=== PATIENT | female | born 1950 | race Caucasian/White ===

== ENCOUNTER 2019-11-22 21:15 | Inpatient (IN) | payer MEDICARE, BC ==
[~2019-11-22] VITALS: Ht 149.9 cm; Wt 71.2 kg
[2019-11-22 21:30] VITALS: BP 127/57
[2019-11-22] MEDS ORDERED: OxyCODONE HCL/ACETAMINOPHEN 5-325 MG TABLET PO PRN (22:45)
[2019-11-22] MEDS ORDERED: MORPHINE SULFATE 2 MG/ML SYRINGE IVP PRN (22:45)
[2019-11-22] MEDS ORDERED: ONDANSETRON HCL 4 MG/2 ML VIAL IVP PRN (23:00)
[2019-11-22] MEDS: INSULIN GLARGINE,HUM.REC.ANLOG 100 UNITS/ML SQ SCH (23:42)
[2019-11-23] MEDS ORDERED: MAGNESIUM HYDROXIDE SUSPENSION 30 ML UDCUP PO PRN
[2019-11-23] MEDS ORDERED: ALBUTEROL SULFATE 2.5 MG/0.5 ML NEB SOLUTION NEB PRN
[2019-11-23] MEDS ORDERED: DEXTROSE 50%-WATER 25 GM/50 ML SYRINGE IVP PRN
[2019-11-23] MEDS ORDERED: ONDANSETRON HCL 4 MG/2 ML VIAL IVP PRN
[2019-11-23] MEDS ORDERED: IPRATROPIUM BROMIDE 0.5 MG/2.5 ML NEB SOLUTION NEB PRN
[2019-11-23] MEDS ORDERED: ZOLPIDEM TARTRATE 5 MG TABLET PO PRN
[2019-11-23] MEDS ORDERED: BISACODYL 10 MG RECTAL RECTAL SUPPOSITORY PR PRN
[2019-11-23] MEDS ORDERED: ACETAMINOPHEN 325 MG TABLET PO PRN ×2 (00:30→01:15)
[2019-11-23] MEDS ORDERED: MELATONIN 5 MG TABLET PO PRN ×2 (00:30→01:15)
[2019-11-23] MEDS ORDERED: METOCLOPRAMIDE HCL 5 MG TABLET PO PRN ×2 (00:30→01:15)
[2019-11-23] MEDS ORDERED: SENNA 187 MG TABLET PO PRN (01:15)
[2019-11-23 04:30] VITALS: BP 121/58
[2019-11-23] MEDS: INSULIN LISPRO 100 UNITS/ML SQ PRN ×3 (05:57→17:27)
[2019-11-23 06:15] LABS: BASOPHILS % (AUTO) 0.6 % (0.0-2.0); EOSINOPHILS % (AUTO) 1.1 % (1.0-6.0); HEMATOCRIT 30.3 % (36-46); HEMOGLOBIN 10.2 g/dL (12.0-16.0); LYMPHOCYTES # (AUTO) 3.3 K/uL (1.0-4.8); LYMPHOCYTES % (AUTO) 25.2 % (22.0-44.0); MEAN CORPUSCULAR HEMOGLOBIN 27.9 pg (26.0-34.0); MEAN CORPUSCULAR HGB CONC 33.7 G/dL (31.0-37.0); MEAN CORPUSCULAR VOLUME 83 fL (80-100); MONOCYTES # (AUTO) 0.8 K/uL (0.1-1.0); MONOCYTES % (AUTO) 6.5 % (2.0-9.0); NEUTROPHILS # (AUTO) 8.8 K/uL (1.8-7.7); NEUTROPHILS % (AUTO) 66.6 % (40.0-70.0); PLATELET COUNT (AUTO) 497 K/uL (150-450); RED BLOOD CELL COUNT(AUTO) 3.66 MIL/uL (4.00-5.20)
[2019-11-23 06:47] LABS: HEMOGLOBIN A1C 9.5 % (4.5-6.2)
[2019-11-23 06:52] LABS: ANION GAP 5 mmol/L (8-16); CALCIUM, TOTAL 8.6 mg/dL (8.8-10.5); CARBON DIOXIDE 29 mmol/L (22-29); CHLORIDE 100 mmol/L (98-107); CHOL/HDL RATIO 6.8 (3.9-5.7); CHOLESTEROL 156 mg/dL (131-200); CREATINE KINASE, TOTAL ONLY 8 U/L (26-192); CREATININE 0.55 mg/dL (0.60-1.30); FREE T4 (FREE THYROXINE) 1.16 ng/dL (0.76-1.46); GLOMERULAR FILTR. RATE CALC > 60 mL/min (>60); GLUCOSE,RANDOM 160 mg/dL (70-110); HDL CHOLESTEROL 23 mg/dL (40-60); LDL CHOL (CALC.) 98 mg/dL (0-130); POTASSIUM 4.1 mmol/L (3.5-5.1); SODIUM SERUM 134 mmol/L (136-145); THYROID STIMULATING HORMONE 1.65 uIU/mL (0.36-3.74); TRIGLYCERIDES 176 mg/dL (15-150); UREA NITROGEN, BLOOD 10 mg/dL (7-18)
[2019-11-23 07:01] LABS: GLUCOMETER DEV NAME(LOC) 4E.2; GLUCOSE,POINT OF CARE 228 MG/DL (70-110)
[2019-11-23 07:49] VITALS: BP 109/61
[2019-11-23] MEDS: CefoTEtan DISOD 2 GM/DEXTROSE 50 ML IV SCH ×2 (08:55→17:26)
[2019-11-23] MEDS: PANTOPRAZOLE SODIUM 40 MG DR TABLET PO SCH (08:56)
[2019-11-23] MEDS: CARVEDILOL 25 MG TABLET PO SCH ×2 (08:56→21:11)
[2019-11-23] MEDS: FUROSEMIDE 20 MG TABLET PO SCH (08:56)
[2019-11-23] MEDS: FAMOTIDINE 20 MG TABLET PO SCH ×2 (08:56→21:11)
[2019-11-23] MEDS: POTASSIUM CHLORIDE 20 MEQ ER TABLET PO SCH (08:56)
[2019-11-23] MEDS: ZINC SULFATE 220 MG CAPSULE PO SCH (08:56)
[2019-11-23] MEDS: ASCORBIC ACID 500 MG TABLET PO SCH ×2 (08:56→21:11)
[2019-11-23] MEDS: MULTIVITAMINS WITH MINERALS, THERAPEUTIC TABLET PO SCH (08:56)
[2019-11-23] MEDS: LACTOBAC ACID/BULG/BIFID/THERM TABLET PO SCH ×2 (08:57→21:11)
[2019-11-23] MEDS ORDERED: ASCORBIC ACID 500 MG TABLET PO SCH (09:00)
[2019-11-23] MEDS ORDERED: DOCUSATE SODIUM 100 MG CAPSULE PO SCH (09:00)
[2019-11-23] MEDS ORDERED: LACTOBAC ACID/BULG/BIFID/THERM TABLET PO SCH (09:00)
[2019-11-23] MEDS ORDERED: ZINC SULFATE 220 MG CAPSULE PO SCH (09:00)
[2019-11-23] MEDS ORDERED: SENNA 187 MG TABLET PO SCH (09:00)
[2019-11-23] MEDS ORDERED: POTASSIUM CHLORIDE 20 MEQ ER TABLET PO SCH (09:00)
[2019-11-23] MEDS ORDERED: IPRATROPIUM BROMIDE 0.5 MG/2.5 ML NEB SOLUTION NEB SCH (09:00)
[2019-11-23] MEDS ORDERED: MULTIVITAMINS WITH MINERALS, THERAPEUTIC TABLET PO SCH (09:00)
[2019-11-23] MEDS: IPRATROPIUM BROMIDE 0.5 MG/2.5 ML NEB SOLUTION NEB SCH ×2 (09:00→22:26)
[2019-11-23] MEDS: ALBUTEROL SULFATE 2.5 MG/0.5 ML NEB SOLUTION NEB SCH ×2 (09:00→22:26)
[2019-11-23] MEDS ORDERED: ALBUTEROL SULFATE 2.5 MG/0.5 ML NEB SOLUTION NEB SCH (09:00)
[2019-11-23 11:53] VITALS: BP 124/53
[2019-11-23 12:05] LABS: GLUCOMETER DEV NAME(LOC) 4E.2; GLUCOSE,POINT OF CARE 132 MG/DL (70-110)
[2019-11-23 16:00] VITALS: BP 128/57
[2019-11-23 17:35] LABS: GLUCOMETER DEV NAME(LOC) 4E.2; GLUCOSE,POINT OF CARE 169 MG/DL (70-110)
[2019-11-23 19:43] VITALS: BP 125/69
[2019-11-23] MEDS ORDERED: LISINOPRIL 20 MG TABLET PO SCH (21:00)
[2019-11-23] MEDS ORDERED: LISINOPRIL 10 MG TABLET PO SCH (21:00)
[2019-11-23] MEDS: LISINOPRIL 10 MG TABLET PO SCH (21:12)
[2019-11-23] MEDS: INSULIN GLARGINE,HUM.REC.ANLOG 100 UNITS/ML SQ SCH (22:27)
[2019-11-23 23:45] VITALS: BP 106/54
[2019-11-24 04:14] VITALS: BP 124/59
[2019-11-24] MEDS: CefoTEtan DISOD 2 GM/DEXTROSE 50 ML IV SCH ×2 (06:14→17:17)
[2019-11-24 07:57] LABS: BASOPHILS % (AUTO) 0.5 % (0.0-2.0); EOSINOPHILS % (AUTO) 0.6 % (1.0-6.0); HEMOGLOBIN 10.2 g/dL (12.0-16.0); LYMPHOCYTES # (AUTO) 3.4 K/uL (1.0-4.8); LYMPHOCYTES % (AUTO) 24.6 % (22.0-44.0); MEAN CORPUSCULAR HGB CONC 34.1 G/dL (31.0-37.0); MEAN CORPUSCULAR VOLUME 82 fL (80-100); MONOCYTES # (AUTO) 0.9 K/uL (0.1-1.0); MONOCYTES % (AUTO) 6.1 % (2.0-9.0); NEUTROPHILS # (AUTO) 9.5 K/uL (1.8-7.7); NEUTROPHILS % (AUTO) 68.2 % (40.0-70.0); PLATELET COUNT (AUTO) 464 K/uL (150-450); RED BLOOD CELL COUNT(AUTO) 3.65 MIL/uL (4.00-5.20); RED CELL DISTRIBUTION WIDTH 14.9 % (11.5-14.5)
[2019-11-24] MEDS: IPRATROPIUM BROMIDE 0.5 MG/2.5 ML NEB SOLUTION NEB SCH ×2 (08:15→20:53)
[2019-11-24] MEDS: ALBUTEROL SULFATE 2.5 MG/0.5 ML NEB SOLUTION NEB SCH ×2 (08:15→20:53)
[2019-11-24 08:25] LABS: ANION GAP 7 mmol/L (8-16); CALCIUM, TOTAL 8.4 mg/dL (8.8-10.5); CARBON DIOXIDE 29 mmol/L (22-29); CHLORIDE 102 mmol/L (98-107); CREATININE 0.74 mg/dL (0.60-1.30); GLOMERULAR FILTR. RATE CALC > 60 mL/min (>60); GLUCOSE,RANDOM 159 mg/dL (70-110); POTASSIUM 3.8 mmol/L (3.5-5.1); SODIUM SERUM 138 mmol/L (136-145); UREA NITROGEN, BLOOD 7 mg/dL (7-18)
[2019-11-24] MEDS: ASCORBIC ACID 500 MG TABLET PO SCH ×2 (08:30→20:41)
[2019-11-24] MEDS: POTASSIUM CHLORIDE 20 MEQ ER TABLET PO SCH (08:30)
[2019-11-24] MEDS: MULTIVITAMINS WITH MINERALS, THERAPEUTIC TABLET PO SCH (08:30)
[2019-11-24] MEDS: FUROSEMIDE 20 MG TABLET PO SCH (08:30)
[2019-11-24] MEDS: FAMOTIDINE 20 MG TABLET PO SCH ×2 (08:30→20:40)
[2019-11-24] MEDS: CARVEDILOL 25 MG TABLET PO SCH ×2 (08:30→20:40)
[2019-11-24] MEDS: PANTOPRAZOLE SODIUM 40 MG DR TABLET PO SCH (08:31)
[2019-11-24] MEDS: HEPARIN SODIUM,PORCINE 5,000 UNITS/ML VIAL SQ SCH ×2 (08:31→20:41)
[2019-11-24] MEDS: ZINC SULFATE 220 MG CAPSULE PO SCH (08:33)
[2019-11-24] MEDS: LACTOBAC ACID/BULG/BIFID/THERM TABLET PO SCH ×2 (08:33→20:40)
[2019-11-24 08:44] VITALS: BP 126/60
[2019-11-24 08:57] LABS: GLUCOMETER DEV NAME(LOC) 4E.2; GLUCOSE,POINT OF CARE 127 MG/DL (70-110)
[2019-11-24 11:42] VITALS: BP 118/63
[2019-11-24] MEDS: INSULIN LISPRO 100 UNITS/ML SQ PRN ×3 (11:49→21:32)
[2019-11-24 13:25] LABS: GLUCOMETER DEV NAME(LOC) 6N.1; GLUCOSE,POINT OF CARE 168 MG/DL (70-110)
[2019-11-24 15:33] VITALS: BP 136/67
[2019-11-24] MEDS ORDERED: SODIUM CHLORIDE 0.9% 250 ML IV ONE (17:20)
[2019-11-24 17:51] LABS: GLUCOMETER DEV NAME(LOC) 4E.2; GLUCOSE,POINT OF CARE 107 MG/DL (70-110)
[2019-11-24 20:38] VITALS: BP 155/79
[2019-11-24] MEDS: LISINOPRIL 10 MG TABLET PO SCH (20:40)
[2019-11-24] MEDS: INSULIN GLARGINE,HUM.REC.ANLOG 100 UNITS/ML SQ SCH (21:56)
[2019-11-24 23:45] VITALS: BP 131/62
[2019-11-25 02:39] LABS: GLUCOMETER DEV NAME(LOC) 6N.1; GLUCOSE,POINT OF CARE 159 MG/DL (70-110)
[2019-11-25 04:34] VITALS: BP 147/76
[2019-11-25] MEDS ORDERED: SODIUM CHLORIDE 0.9% 500 ML IV ONE (04:58)
[2019-11-25] MEDS: CefoTEtan DISOD 2 GM/DEXTROSE 50 ML IV SCH (05:06)
[2019-11-25] MEDS: INSULIN LISPRO 100 UNITS/ML SQ PRN ×4 (06:06→20:55)
[2019-11-25 07:30] LABS: BASOPHILS % (AUTO) 0.7 % (0.0-2.0); EOSINOPHILS % (AUTO) 0.5 % (1.0-6.0); HEMATOCRIT 30.9 % (36-46); HEMOGLOBIN 10.4 g/dL (12.0-16.0); LYMPHOCYTES # (AUTO) 3.3 K/uL (1.0-4.8); LYMPHOCYTES % (AUTO) 25.2 % (22.0-44.0); MEAN CORPUSCULAR HEMOGLOBIN 27.3 pg (26.0-34.0); MEAN CORPUSCULAR HGB CONC 33.5 G/dL (31.0-37.0); MEAN CORPUSCULAR VOLUME 82 fL (80-100); MONOCYTES # (AUTO) 0.7 K/uL (0.1-1.0); MONOCYTES % (AUTO) 5.8 % (2.0-9.0); NEUTROPHILS # (AUTO) 8.8 K/uL (1.8-7.7); NEUTROPHILS % (AUTO) 67.8 % (40.0-70.0); PLATELET COUNT (AUTO) 500 K/uL (150-450); RED CELL DISTRIBUTION WIDTH 15.5 % (11.5-14.5)
[2019-11-25 07:41] LABS: ANION GAP 5 mmol/L (8-16); CALCIUM, TOTAL 8.8 mg/dL (8.8-10.5); CARBON DIOXIDE 31 mmol/L (22-29); CHLORIDE 102 mmol/L (98-107); CREATININE 0.73 mg/dL (0.60-1.30); GLOMERULAR FILTR. RATE CALC > 60 mL/min (>60); GLUCOSE,RANDOM 137 mg/dL (70-110); POTASSIUM 4.3 mmol/L (3.5-5.1); SODIUM SERUM 138 mmol/L (136-145); UREA NITROGEN, BLOOD 6 mg/dL (7-18)
[2019-11-25 08:38] VITALS: BP 128/68
[2019-11-25] MEDS: ASCORBIC ACID 500 MG TABLET PO SCH ×2 (09:08→20:40)
[2019-11-25] MEDS: PANTOPRAZOLE SODIUM 40 MG DR TABLET PO SCH (09:08)
[2019-11-25] MEDS: POTASSIUM CHLORIDE 20 MEQ ER TABLET PO SCH (09:08)
[2019-11-25] MEDS: MULTIVITAMINS WITH MINERALS, THERAPEUTIC TABLET PO SCH (09:08)
[2019-11-25] MEDS: HEPARIN SODIUM,PORCINE 5,000 UNITS/ML VIAL SQ SCH ×2 (09:09→20:40)
[2019-11-25] MEDS: FUROSEMIDE 20 MG TABLET PO SCH (09:09)
[2019-11-25] MEDS: CARVEDILOL 25 MG TABLET PO SCH ×2 (09:09→20:40)
[2019-11-25] MEDS: ZINC SULFATE 220 MG CAPSULE PO SCH (09:09)
[2019-11-25] MEDS: FAMOTIDINE 20 MG TABLET PO SCH ×2 (09:09→20:40)
[2019-11-25] MEDS: LACTOBAC ACID/BULG/BIFID/THERM TABLET PO SCH ×2 (09:09→20:40)
[2019-11-25 12:01] VITALS: BP 134/74
[2019-11-25] MEDS: ALBUTEROL SULFATE 2.5 MG/0.5 ML NEB SOLUTION NEB SCH ×2 (12:47→20:50)
[2019-11-25] MEDS: IPRATROPIUM BROMIDE 0.5 MG/2.5 ML NEB SOLUTION NEB SCH ×2 (12:47→20:50)
[2019-11-25] MEDS: LEVOFLOXACIN 250 MG TABLET PO SCH (14:19)
[2019-11-25 15:55] VITALS: BP 133/72
[2019-11-25 20:00] VITALS: BP 143/69
[2019-11-25 20:35] LABS: GLUCOMETER DEV NAME(LOC) 4E.2; GLUCOSE,POINT OF CARE 154 MG/DL (70-110)
[2019-11-25] MEDS: LISINOPRIL 10 MG TABLET PO SCH (20:40)
[2019-11-25] MEDS: INSULIN GLARGINE,HUM.REC.ANLOG 100 UNITS/ML SQ SCH (20:54)
[2019-11-25 21:29] LABS: GLUCOMETER DEV NAME(LOC) 6N.1; GLUCOSE,POINT OF CARE 145 MG/DL (70-110)
[2019-11-25 21:29] LABS: GLUCOMETER DEV NAME(LOC) 6N.1; GLUCOSE,POINT OF CARE 119 MG/DL (70-110)
[2019-11-25 23:56] VITALS: BP 134/71
[2019-11-26 05:29] VITALS: BP 145/74
[2019-11-26 07:16] VITALS: BP 149/68
[2019-11-26] MEDS: POTASSIUM CHLORIDE 20 MEQ ER TABLET PO SCH (08:01)
[2019-11-26] MEDS: LACTOBAC ACID/BULG/BIFID/THERM TABLET PO SCH ×2 (08:01→22:39)
[2019-11-26] MEDS: ASCORBIC ACID 500 MG TABLET PO SCH ×2 (08:01→22:40)
[2019-11-26] MEDS: FAMOTIDINE 20 MG TABLET PO SCH ×2 (08:01→22:40)
[2019-11-26] MEDS: MULTIVITAMINS WITH MINERALS, THERAPEUTIC TABLET PO SCH (08:01)
[2019-11-26] MEDS: LEVOFLOXACIN 250 MG TABLET PO SCH (08:01)
[2019-11-26] MEDS: FUROSEMIDE 20 MG TABLET PO SCH (08:01)
[2019-11-26] MEDS: ZINC SULFATE 220 MG CAPSULE PO SCH (08:01)
[2019-11-26] MEDS: CARVEDILOL 25 MG TABLET PO SCH ×2 (08:01→22:40)
[2019-11-26] MEDS: PANTOPRAZOLE SODIUM 40 MG DR TABLET PO SCH (08:01)
[2019-11-26] MEDS: HEPARIN SODIUM,PORCINE 5,000 UNITS/ML VIAL SQ SCH ×2 (08:02→22:40)
[2019-11-26] MEDS: ALBUTEROL SULFATE 2.5 MG/0.5 ML NEB SOLUTION NEB SCH ×2 (08:35→21:15)
[2019-11-26] MEDS: IPRATROPIUM BROMIDE 0.5 MG/2.5 ML NEB SOLUTION NEB SCH ×2 (08:35→21:15)
[2019-11-26 11:06] VITALS: BP 146/69
[2019-11-26] MEDS: INSULIN LISPRO 100 UNITS/ML SQ PRN (11:48)
[2019-11-26] MEDS ORDERED: SODIUM CL IRRIG SOLN BOTTLE 250 ML IRRIG ONE (14:10)
[2019-11-26 15:55] VITALS: BP 155/81
[2019-11-26 20:03] VITALS: BP 106/67
[2019-11-26 20:43] LABS: GLUCOMETER DEV NAME(LOC) 4E.2; GLUCOSE,POINT OF CARE 177 MG/DL (70-110)
[2019-11-26 20:43] LABS: GLUCOMETER DEV NAME(LOC) 4E.2; GLUCOSE,POINT OF CARE 121 MG/DL (70-110)
[2019-11-26] MEDS: LISINOPRIL 10 MG TABLET PO SCH (22:40)
[2019-11-26] MEDS: INSULIN GLARGINE,HUM.REC.ANLOG 100 UNITS/ML SQ SCH (22:53)
[2019-11-26 23:07] LABS: GLUCOMETER DEV NAME(LOC) 4E.2; GLUCOSE,POINT OF CARE 159 MG/DL (70-110)
[2019-11-26 23:43] VITALS: BP 122/61
[2019-11-27 04:50] VITALS: BP 126/60
[2019-11-27 06:14] LABS: GLUCOMETER DEV NAME(LOC) 4E.2; GLUCOSE,POINT OF CARE 123 MG/DL (70-110)
[2019-11-27 08:09] VITALS: BP 130/61
[2019-11-27] MEDS: LACTOBAC ACID/BULG/BIFID/THERM TABLET PO SCH ×2 (09:24→21:01)
[2019-11-27] MEDS: CARVEDILOL 25 MG TABLET PO SCH ×2 (09:24→20:56)
[2019-11-27] MEDS: POTASSIUM CHLORIDE 20 MEQ ER TABLET PO SCH (09:25)
[2019-11-27] MEDS: FUROSEMIDE 20 MG TABLET PO SCH (09:26)
[2019-11-27] MEDS: LEVOFLOXACIN 250 MG TABLET PO SCH (09:27)
[2019-11-27] MEDS: MULTIVITAMINS WITH MINERALS, THERAPEUTIC TABLET PO SCH (09:27)
[2019-11-27] MEDS: PANTOPRAZOLE SODIUM 40 MG DR TABLET PO SCH (09:27)
[2019-11-27] MEDS: FAMOTIDINE 20 MG TABLET PO SCH ×2 (09:27→20:57)
[2019-11-27] MEDS: ZINC SULFATE 220 MG CAPSULE PO SCH (09:28)
[2019-11-27] MEDS: HEPARIN SODIUM,PORCINE 5,000 UNITS/ML VIAL SQ SCH ×2 (09:28→20:57)
[2019-11-27] MEDS: ASCORBIC ACID 500 MG TABLET PO SCH ×2 (09:28→20:57)
[2019-11-27] MEDS: IPRATROPIUM BROMIDE 0.5 MG/2.5 ML NEB SOLUTION NEB SCH ×2 (10:32→20:58)
[2019-11-27] MEDS: ALBUTEROL SULFATE 2.5 MG/0.5 ML NEB SOLUTION NEB SCH ×2 (10:32→20:57)
[2019-11-27 11:47] VITALS: BP 140/76
[2019-11-27] MEDS: INSULIN LISPRO 100 UNITS/ML SQ PRN (12:29)
[2019-11-27 12:43] LABS: GLUCOMETER DEV NAME(LOC) 4E.2; GLUCOSE,POINT OF CARE 163 MG/DL (70-110)
[2019-11-27 17:00] VITALS: BP 143/58
[2019-11-27 17:00] LABS: GLUCOMETER DEV NAME(LOC) 6N.1; GLUCOSE,POINT OF CARE 135 MG/DL (70-110)
[2019-11-27 17:00] LABS: GLUCOMETER DEV NAME(LOC) 6N.1; GLUCOSE,POINT OF CARE 145 MG/DL (70-110)
[2019-11-27 20:08] LABS: GLUCOMETER DEV NAME(LOC) 4E.2; GLUCOSE,POINT OF CARE 123 MG/DL (70-110)
[2019-11-27 20:17] VITALS: BP 130/61
[2019-11-27] MEDS: LISINOPRIL 10 MG TABLET PO SCH (20:56)
[2019-11-27] MEDS: INSULIN GLARGINE,HUM.REC.ANLOG 100 UNITS/ML SQ SCH (20:58)
[2019-11-28] VITALS: BP 117/59
[2019-11-28 04:00] VITALS: BP 103/52
[2019-11-28 04:13] LABS: GLUCOMETER DEV NAME(LOC) 4E.2; GLUCOSE,POINT OF CARE 104 MG/DL (70-110)
[2019-11-28] MEDS: IPRATROPIUM BROMIDE 0.5 MG/2.5 ML NEB SOLUTION NEB SCH ×2 (08:10→21:00)
[2019-11-28] MEDS: ALBUTEROL SULFATE 2.5 MG/0.5 ML NEB SOLUTION NEB SCH ×2 (08:10→21:00)
[2019-11-28 08:18] LABS: BASOPHILS % (AUTO) 0.6 % (0.0-2.0); EOSINOPHILS % (AUTO) 1.3 % (1.0-6.0); HEMATOCRIT 33.3 % (36-46); HEMOGLOBIN 11.4 g/dL (12.0-16.0); LYMPHOCYTES # (AUTO) 3.5 K/uL (1.0-4.8); LYMPHOCYTES % (AUTO) 28.8 % (22.0-44.0); MEAN CORPUSCULAR HEMOGLOBIN 27.7 pg (26.0-34.0); MEAN CORPUSCULAR HGB CONC 34.2 G/dL (31.0-37.0); MEAN CORPUSCULAR VOLUME 81 fL (80-100); MONOCYTES # (AUTO) 0.6 K/uL (0.1-1.0); MONOCYTES % (AUTO) 5.3 % (2.0-9.0); NEUTROPHILS # (AUTO) 7.7 K/uL (1.8-7.7); PLATELET COUNT (AUTO) 558 K/uL (150-450); RED BLOOD CELL COUNT(AUTO) 4.11 MIL/uL (4.00-5.20); RED CELL DISTRIBUTION WIDTH 15.7 % (11.5-14.5)
[2019-11-28 08:29] LABS: ANION GAP 7 mmol/L (8-16); CALCIUM, TOTAL 9.6 mg/dL (8.8-10.5); CARBON DIOXIDE 30 mmol/L (22-29); CHLORIDE 103 mmol/L (98-107); CREATININE 0.62 mg/dL (0.60-1.30); GLOMERULAR FILTR. RATE CALC > 60 mL/min (>60); GLUCOSE,RANDOM 135 mg/dL (70-110); POTASSIUM 4.4 mmol/L (3.5-5.1); SODIUM SERUM 140 mmol/L (136-145); UREA NITROGEN, BLOOD 7 mg/dL (7-18)
[2019-11-28 08:56] VITALS: BP 105/58
[2019-11-28] MEDS: PANTOPRAZOLE SODIUM 40 MG DR TABLET PO SCH (09:37)
[2019-11-28] MEDS: FUROSEMIDE 20 MG TABLET PO SCH (09:38)
[2019-11-28] MEDS: MULTIVITAMINS WITH MINERALS, THERAPEUTIC TABLET PO SCH (09:38)
[2019-11-28] MEDS: FAMOTIDINE 20 MG TABLET PO SCH ×2 (09:38→20:53)
[2019-11-28] MEDS: POTASSIUM CHLORIDE 20 MEQ ER TABLET PO SCH (09:38)
[2019-11-28] MEDS: ASCORBIC ACID 500 MG TABLET PO SCH ×2 (09:38→20:53)
[2019-11-28] MEDS: CARVEDILOL 25 MG TABLET PO SCH ×2 (09:38→21:00)
[2019-11-28] MEDS: LEVOFLOXACIN 250 MG TABLET PO SCH (09:39)
[2019-11-28] MEDS: HEPARIN SODIUM,PORCINE 5,000 UNITS/ML VIAL SQ SCH ×2 (09:39→20:53)
[2019-11-28] MEDS: ZINC SULFATE 220 MG CAPSULE PO SCH (09:39)
[2019-11-28] MEDS: LACTOBAC ACID/BULG/BIFID/THERM TABLET PO SCH ×2 (09:46→20:53)
[2019-11-28 11:42] VITALS: BP 150/61
[2019-11-28 13:24] LABS: GLUCOMETER DEV NAME(LOC) 6N.1; GLUCOSE,POINT OF CARE 138 MG/DL (70-110)
[2019-11-28 17:18] VITALS: BP 141/71
[2019-11-28 20:28] LABS: GLUCOMETER DEV NAME(LOC) 6N.1; GLUCOSE,POINT OF CARE 136 MG/DL (70-110)
[2019-11-28 20:28] LABS: GLUCOMETER DEV NAME(LOC) 4E.2; GLUCOSE,POINT OF CARE 121 MG/DL (70-110)
[2019-11-28 20:37] VITALS: BP 118/66
[2019-11-28] MEDS: LISINOPRIL 10 MG TABLET PO SCH (20:53)
[2019-11-28] MEDS: INSULIN GLARGINE,HUM.REC.ANLOG 100 UNITS/ML SQ SCH (21:00)
[2019-11-29] VITALS: BP 108/55
[2019-11-29 00:58] LABS: GLUCOMETER DEV NAME(LOC) 4E.2; GLUCOSE,POINT OF CARE 114 MG/DL (70-110)
[2019-11-29 04:00] VITALS: BP 129/83
[2019-11-29 07:48] VITALS: BP 124/68
[2019-11-29 07:49] LABS: GLUCOMETER DEV NAME(LOC) 4E.2; GLUCOSE,POINT OF CARE 123 MG/DL (70-110)
[2019-11-29] MEDS: ASCORBIC ACID 500 MG TABLET PO SCH (08:02)
[2019-11-29] MEDS: ZINC SULFATE 220 MG CAPSULE PO SCH (08:02)
[2019-11-29] MEDS: HEPARIN SODIUM,PORCINE 5,000 UNITS/ML VIAL SQ SCH (08:02)
[2019-11-29] MEDS: PANTOPRAZOLE SODIUM 40 MG DR TABLET PO SCH (08:02)
[2019-11-29] MEDS: FAMOTIDINE 20 MG TABLET PO SCH (08:03)
[2019-11-29] MEDS: MULTIVITAMINS WITH MINERALS, THERAPEUTIC TABLET PO SCH (08:03)
[2019-11-29] MEDS: LACTOBAC ACID/BULG/BIFID/THERM TABLET PO SCH (08:03)
[2019-11-29] MEDS: FUROSEMIDE 20 MG TABLET PO SCH (08:03)
[2019-11-29] MEDS: POTASSIUM CHLORIDE 20 MEQ ER TABLET PO SCH (08:03)
[2019-11-29] MEDS: CARVEDILOL 25 MG TABLET PO SCH (08:03)
[2019-11-29] MEDS: LEVOFLOXACIN 250 MG TABLET PO SCH (08:03)
[2019-11-29] MEDS: ALBUTEROL SULFATE 2.5 MG/0.5 ML NEB SOLUTION NEB SCH (09:34)
[2019-11-29] MEDS: IPRATROPIUM BROMIDE 0.5 MG/2.5 ML NEB SOLUTION NEB SCH (09:34)
[2019-11-29 11:33] VITALS: BP 149/73
[2019-11-29 16:07] LABS: GLUCOMETER DEV NAME(LOC) 4E.2; GLUCOSE,POINT OF CARE 133 MG/DL (70-110)
[2019-11-29 16:40] VITALS: BP 108/59
[2019-11-29 23:57] LABS: GLUCOMETER DEV NAME(LOC) 6N.1; GLUCOSE,POINT OF CARE 206 MG/DL (70-110)
== END 2019-11-29 16:30 | DRG 464 ==
LOC: 6N 21:15
PROVIDERS: ADMIT Internal Medicine Geriatric Medicine; ATTEND Internal Medicine Geriatric Medicine
PROC: 0KBR0ZZ Excision of Left Upper Leg Muscle, Open Approach (ICD-10-PCS; principal; 2019-11-22)
PROC: 0JXP0ZC Transfer Left Lower Leg Subcutaneous Tissue and Fascia with Skin, Subcutaneous Tissue and Fascia, Open Approach (ICD-10-PCS; 2019-11-22)
DX: M72.6 Necrotizing fasciitis (principal); I50.32 Chronic diastolic (congestive) heart failure; L03.116 Cellulitis of left lower limb; J98.11 Atelectasis; J91.8 Pleural effusion in other conditions classified elsewhere; D64.9 Anemia, unspecified; R26.9 Unspecified abnormalities of gait and mobility; I11.0 Hypertensive heart disease with heart failure; I34.0 Nonrheumatic mitral (valve) insufficiency; B96.1 Klebsiella pneumoniae [K. pneumoniae] as the cause of diseases classified elsewhere; E11.9 Type 2 diabetes mellitus without complications; I10 Essential (primary) hypertension; K59.00 Constipation, unspecified; Z83.3 Family history of diabetes mellitus; Z87.891 Personal history of nicotine dependence
CPT/HCPCS: 83036; 83735; 84439; 84443; 94640; 97166; 97535; J1644; J1815; J3490; J7040; J7050

== ENCOUNTER 2019-11-29 16:45 | Inpatient (IN) | payer MEDICARE, BC ==
[~2019-11-29] VITALS: Ht 149.9 cm; Wt 61.7 kg
[2019-11-29 18:00] VITALS: BP 115/66
[2019-11-29] MEDS ORDERED: DEXTROSE 50%-WATER 25 GM/50 ML SYRINGE IVP PRN (19:00)
[2019-11-29] MEDS ORDERED: ACETAMINOPHEN 325 MG TABLET PO PRN (19:00)
[2019-11-29] MEDS ORDERED: MELATONIN 5 MG TABLET PO PRN (19:00)
[2019-11-29] MEDS ORDERED: METOCLOPRAMIDE HCL 5 MG TABLET PO PRN (19:15)
[2019-11-29] MEDS ORDERED: MAGNESIUM HYDROXIDE SUSPENSION 30 ML UDCUP PO PRN (19:15)
[2019-11-29] MEDS ORDERED: OxyCODONE HCL/ACETAMINOPHEN 5-325 MG TABLET PO PRN (19:15)
[2019-11-29 19:28] LABS: GLUCOMETER DEV NAME(LOC) 2WR.1C; GLUCOSE,POINT OF CARE 157 MG/DL (70-110)
[2019-11-29] MEDS ORDERED: SODIUM CL IRRIG SOLN BOTTLE 250 ML IRRIG ONE (19:55)
[2019-11-29 20:50] LABS: GLUCOMETER DEV NAME(LOC) 2WR.2; GLUCOSE,POINT OF CARE 146 MG/DL (70-110)
[2019-11-29] MEDS: LACTOBAC ACID/BULG/BIFID/THERM TABLET PO SCH (20:59)
[2019-11-29] MEDS ORDERED: LISINOPRIL 20 MG TABLET PO SCH (21:00)
[2019-11-29] MEDS: FAMOTIDINE 20 MG TABLET PO SCH (21:00)
[2019-11-29] MEDS: CARVEDILOL 25 MG TABLET PO SCH (21:00)
[2019-11-29] MEDS: ASCORBIC ACID 500 MG TABLET PO SCH (21:00)
[2019-11-29] MEDS: DOCUSATE SODIUM 100 MG CAPSULE PO SCH (21:00)
[2019-11-29] MEDS: SENNA 187 MG TABLET PO SCH (21:00)
[2019-11-29] MEDS: HEPARIN SODIUM,PORCINE 5,000 UNITS/ML VIAL SQ SCH (21:04)
[2019-11-29] MEDS: INSULIN GLARGINE,HUM.REC.ANLOG 100 UNITS/ML SQ SCH (21:05)
[2019-11-29] MEDS: INSULIN LISPRO 100 UNITS/ML SQ PRN (21:06)
[2019-11-29 21:14] VITALS: BP 118/58
[2019-11-29] MEDS: IPRATROPIUM BROMIDE 0.5 MG/2.5 ML NEB SOLUTION NEB SCH (21:33)
[2019-11-29] MEDS: ALBUTEROL SULFATE 2.5 MG/0.5 ML NEB SOLUTION NEB SCH (21:33)
[2019-11-29] MEDS: 0.9% SODIUM CHLORIDE 10 ML SYRINGE IVP SCH (23:43)
[2019-11-30 00:16] VITALS: BP 103/61
[2019-11-30 06:26] LABS: GLUCOMETER DEV NAME(LOC) 2WR.1C; GLUCOSE,POINT OF CARE 131 MG/DL (70-110)
[2019-11-30 07:29] LABS: BASOPHILS % (AUTO) 0.5 % (0.0-2.0); EOSINOPHILS % (AUTO) 1.7 % (1.0-6.0); HEMATOCRIT 32.2 % (36-46); HEMOGLOBIN 10.9 g/dL (12.0-16.0); LYMPHOCYTES # (AUTO) 3.7 K/uL (1.0-4.8); LYMPHOCYTES % (AUTO) 28.4 % (22.0-44.0); MEAN CORPUSCULAR HEMOGLOBIN 27.6 pg (26.0-34.0); MEAN CORPUSCULAR VOLUME 81 fL (80-100); MONOCYTES # (AUTO) 0.7 K/uL (0.1-1.0); MONOCYTES % (AUTO) 5.2 % (2.0-9.0); NEUTROPHILS # (AUTO) 8.3 K/uL (1.8-7.7); NEUTROPHILS % (AUTO) 64.2 % (40.0-70.0); PLATELET COUNT (AUTO) 531 K/uL (150-450); RED BLOOD CELL COUNT(AUTO) 3.96 MIL/uL (4.00-5.20); RED CELL DISTRIBUTION WIDTH 16.5 % (11.5-14.5)
[2019-11-30 07:45] VITALS: BP 140/62
[2019-11-30 07:47] LABS: ALANINE AMINOTRANSFERASE 13 U/L (12-78); ALKALINE PHOSPHATASE 80 U/L (46-116); ANION GAP 8 mmol/L (8-16); ASPARTATE AMINOTRANSFERASE 14 U/L (15-37); BILIRUBIN,TOTAL 0.3 mg/dL (0.1-1.0); CALCIUM, TOTAL 9.3 mg/dL (8.8-10.5); CARBON DIOXIDE 28 mmol/L (22-29); CHLORIDE 103 mmol/L (98-107); CREATININE 0.54 mg/dL (0.60-1.30); GLOMERULAR FILTR. RATE CALC > 60 mL/min (>60); GLUCOSE,RANDOM 132 mg/dL (70-110); POTASSIUM 4.3 mmol/L (3.5-5.1); SODIUM SERUM 139 mmol/L (136-145); TOTAL PROTEIN, SERUM 6.8 g/dL (6.4-8.2); UREA NITROGEN, BLOOD 12 mg/dL (7-18)
[2019-11-30] MEDS: 0.9% SODIUM CHLORIDE 10 ML SYRINGE IVP SCH (08:00)
[2019-11-30] MEDS: CARVEDILOL 25 MG TABLET PO SCH (08:05)
[2019-11-30] MEDS: MULTIVITAMINS WITH MINERALS, THERAPEUTIC TABLET PO SCH (08:05)
[2019-11-30] MEDS: LACTOBAC ACID/BULG/BIFID/THERM TABLET PO SCH ×2 (08:05→20:45)
[2019-11-30] MEDS: HEPARIN SODIUM,PORCINE 5,000 UNITS/ML VIAL SQ SCH ×2 (08:05→20:45)
[2019-11-30] MEDS: ASCORBIC ACID 500 MG TABLET PO SCH ×2 (08:05→20:46)
[2019-11-30] MEDS: POTASSIUM CHLORIDE 20 MEQ ER TABLET PO SCH (08:06)
[2019-11-30] MEDS: ZINC SULFATE 220 MG CAPSULE PO SCH (08:06)
[2019-11-30] MEDS: FUROSEMIDE 20 MG TABLET PO SCH (08:06)
[2019-11-30] MEDS: PANTOPRAZOLE SODIUM 40 MG DR TABLET PO SCH (08:06)
[2019-11-30] MEDS: LEVOFLOXACIN 250 MG TABLET PO SCH (08:06)
[2019-11-30] MEDS: FAMOTIDINE 20 MG TABLET PO SCH ×2 (08:06→20:45)
[2019-11-30] MEDS: BISACODYL 10 MG RECTAL RECTAL SUPPOSITORY PR SCH (08:10)
[2019-11-30] MEDS: DOCUSATE SODIUM 100 MG CAPSULE PO SCH ×2 (09:00→20:46)
[2019-11-30 15:22] VITALS: BP 124/65
[2019-11-30 15:54] LABS: GLUCOMETER DEV NAME(LOC) 2WR.1C; GLUCOSE,POINT OF CARE 134 MG/DL (70-110)
[2019-11-30 17:04] LABS: GLUCOMETER DEV NAME(LOC) 2WR.1C; GLUCOSE,POINT OF CARE 136 MG/DL (70-110)
[2019-11-30 20:06] VITALS: BP 136/64
[2019-11-30] MEDS: SENNA 187 MG TABLET PO SCH (20:46)
[2019-11-30] MEDS: CARVEDILOL 6.25 MG TABLET PO SCH (20:46)
[2019-11-30] MEDS: LISINOPRIL 5 MG TABLET PO SCH (20:46)
[2019-11-30] MEDS: INSULIN GLARGINE,HUM.REC.ANLOG 100 UNITS/ML SQ SCH (20:49)
[2019-11-30] MEDS ORDERED: LISINOPRIL 10 MG TABLET PO SCH (21:00)
[2019-11-30] MEDS: ALBUTEROL SULFATE 2.5 MG/0.5 ML NEB SOLUTION NEB SCH (21:35)
[2019-11-30] MEDS: IPRATROPIUM BROMIDE 0.5 MG/2.5 ML NEB SOLUTION NEB SCH (21:35)
[2019-11-30 21:40] LABS: GLUCOMETER DEV NAME(LOC) 2WR.2; GLUCOSE,POINT OF CARE 121 MG/DL (70-110)
[2019-11-30 23:57] VITALS: BP 124/59
[2019-12-01 06:06] LABS: GLUCOMETER DEV NAME(LOC) 2WR.2; GLUCOSE,POINT OF CARE 121 MG/DL (70-110)
[2019-12-01 07:30] VITALS: BP 139/68
[2019-12-01] MEDS: ASCORBIC ACID 500 MG TABLET PO SCH ×2 (08:15→21:29)
[2019-12-01] MEDS: MULTIVITAMINS WITH MINERALS, THERAPEUTIC TABLET PO SCH (08:15)
[2019-12-01] MEDS: FAMOTIDINE 20 MG TABLET PO SCH ×2 (08:15→21:29)
[2019-12-01] MEDS: CARVEDILOL 6.25 MG TABLET PO SCH ×2 (08:15→21:29)
[2019-12-01] MEDS: LACTOBAC ACID/BULG/BIFID/THERM TABLET PO SCH ×2 (08:15→21:29)
[2019-12-01] MEDS: PANTOPRAZOLE SODIUM 40 MG DR TABLET PO SCH (08:16)
[2019-12-01] MEDS: ZINC SULFATE 220 MG CAPSULE PO SCH (08:16)
[2019-12-01] MEDS: LEVOFLOXACIN 250 MG TABLET PO SCH (08:16)
[2019-12-01] MEDS: POTASSIUM CHLORIDE 20 MEQ ER TABLET PO SCH (08:16)
[2019-12-01] MEDS: FUROSEMIDE 20 MG TABLET PO SCH (08:16)
[2019-12-01] MEDS: HEPARIN SODIUM,PORCINE 5,000 UNITS/ML VIAL SQ SCH ×2 (08:17→21:32)
[2019-12-01] MEDS: DOCUSATE SODIUM 100 MG CAPSULE PO SCH ×2 (08:26→21:00)
[2019-12-01] MEDS: BISACODYL 10 MG RECTAL RECTAL SUPPOSITORY PR SCH (08:26)
[2019-12-01] MEDS: ALBUTEROL SULFATE 2.5 MG/0.5 ML NEB SOLUTION NEB SCH ×2 (09:00→20:56)
[2019-12-01] MEDS: IPRATROPIUM BROMIDE 0.5 MG/2.5 ML NEB SOLUTION NEB SCH ×2 (09:00→20:56)
[2019-12-01] MEDS ORDERED: SODIUM CL IRRIG SOLN BOTTLE 250 ML IRRIG ONE (10:17)
[2019-12-01 12:35] LABS: GLUCOMETER DEV NAME(LOC) 2WR.2; GLUCOSE,POINT OF CARE 135 MG/DL (70-110)
[2019-12-01 16:00] VITALS: BP 132/72
[2019-12-01 18:08] LABS: GLUCOMETER DEV NAME(LOC) 2WR.1C; GLUCOSE,POINT OF CARE 113 MG/DL (70-110)
[2019-12-01] MEDS ORDERED: BISACODYL 10 MG RECTAL RECTAL SUPPOSITORY PR PRN (20:00)
[2019-12-01] MEDS: SENNA 187 MG TABLET PO SCH (21:00)
[2019-12-01] MEDS: LISINOPRIL 5 MG TABLET PO SCH (21:30)
[2019-12-01] MEDS: INSULIN GLARGINE,HUM.REC.ANLOG 100 UNITS/ML SQ SCH (21:43)
[2019-12-01] MEDS: INSULIN LISPRO 100 UNITS/ML SQ PRN (21:44)
[2019-12-01 22:09] LABS: GLUCOMETER DEV NAME(LOC) 2WR.2; GLUCOSE,POINT OF CARE 148 MG/DL (70-110)
[2019-12-02] VITALS: BP 104/59
[2019-12-02 06:16] LABS: GLUCOMETER DEV NAME(LOC) 2WR.2; GLUCOSE,POINT OF CARE 136 MG/DL (70-110)
[2019-12-02 07:47] VITALS: BP 129/73
[2019-12-02 07:53] LABS: BASOPHILS % (AUTO) 1.2 % (0.0-2.0); EOSINOPHILS % (AUTO) 4.1 % (1.0-6.0); HEMOGLOBIN 11.5 g/dL (12.0-16.0); LYMPHOCYTES # (AUTO) 3.6 K/uL (1.0-4.8); LYMPHOCYTES % (AUTO) 38.8 % (22.0-44.0); MEAN CORPUSCULAR HEMOGLOBIN 28.3 pg (26.0-34.0); MEAN CORPUSCULAR HGB CONC 34.8 G/dL (31.0-37.0); MEAN CORPUSCULAR VOLUME 81 fL (80-100); MONOCYTES # (AUTO) 0.6 K/uL (0.1-1.0); MONOCYTES % (AUTO) 6.4 % (2.0-9.0); NEUTROPHILS # (AUTO) 4.5 K/uL (1.8-7.7); NEUTROPHILS % (AUTO) 49.5 % (40.0-70.0); PLATELET COUNT (AUTO) 544 K/uL (150-450); RED BLOOD CELL COUNT(AUTO) 4.06 MIL/uL (4.00-5.20); RED CELL DISTRIBUTION WIDTH 17.2 % (11.5-14.5)
[2019-12-02 08:11] LABS: ALANINE AMINOTRANSFERASE 14 U/L (12-78); ALBUMIN 2.2 g/dL (3.4-5.0); ALKALINE PHOSPHATASE 87 U/L (46-116); ANION GAP 8 mmol/L (8-16); ASPARTATE AMINOTRANSFERASE 19 U/L (15-37); BILIRUBIN,TOTAL 0.3 mg/dL (0.1-1.0); CALCIUM, TOTAL 9.4 mg/dL (8.8-10.5); CARBON DIOXIDE 29 mmol/L (22-29); CHLORIDE 103 mmol/L (98-107); GLOMERULAR FILTR. RATE CALC > 60 mL/min (>60); GLUCOSE,RANDOM 143 mg/dL (70-110); POTASSIUM 3.9 mmol/L (3.5-5.1); SODIUM SERUM 140 mmol/L (136-145); UREA NITROGEN, BLOOD 11 mg/dL (7-18)
[2019-12-02 08:22] LABS: CREATINE KINASE, TOTAL ONLY < 7 U/L (26-192)
[2019-12-02] MEDS: PANTOPRAZOLE SODIUM 40 MG DR TABLET PO SCH (08:36)
[2019-12-02] MEDS: HEPARIN SODIUM,PORCINE 5,000 UNITS/ML VIAL SQ SCH ×2 (08:36→20:41)
[2019-12-02] MEDS: FAMOTIDINE 20 MG TABLET PO SCH ×2 (08:36→20:41)
[2019-12-02] MEDS: LACTOBAC ACID/BULG/BIFID/THERM TABLET PO SCH ×2 (08:36→20:41)
[2019-12-02] MEDS: LEVOFLOXACIN 250 MG TABLET PO SCH (08:37)
[2019-12-02] MEDS: CARVEDILOL 6.25 MG TABLET PO SCH ×2 (08:37→20:41)
[2019-12-02] MEDS: DOCUSATE SODIUM 100 MG CAPSULE PO SCH ×3 (08:37→20:46)
[2019-12-02] MEDS: FUROSEMIDE 20 MG TABLET PO SCH (08:37)
[2019-12-02] MEDS: ASCORBIC ACID 500 MG TABLET PO SCH (08:37)
[2019-12-02] MEDS: POTASSIUM CHLORIDE 20 MEQ ER TABLET PO SCH (08:37)
[2019-12-02] MEDS: MULTIVITAMINS WITH MINERALS, THERAPEUTIC TABLET PO SCH (08:37)
[2019-12-02] MEDS: ALBUTEROL SULFATE 2.5 MG/0.5 ML NEB SOLUTION NEB SCH ×2 (08:42→20:49)
[2019-12-02] MEDS: IPRATROPIUM BROMIDE 0.5 MG/2.5 ML NEB SOLUTION NEB SCH ×2 (08:42→20:49)
[2019-12-02] MEDS: ZINC SULFATE 220 MG CAPSULE PO SCH (09:22)
[2019-12-02 16:00] VITALS: BP 123/74
[2019-12-02 16:33] LABS: GLUCOMETER DEV NAME(LOC) 2WR.1C; GLUCOSE,POINT OF CARE 137 MG/DL (70-110)
[2019-12-02] MEDS: INSULIN LISPRO 100 UNITS/ML SQ PRN (18:06)
[2019-12-02 18:42] LABS: GLUCOMETER DEV NAME(LOC) 2WR.2; GLUCOSE,POINT OF CARE 151 MG/DL (70-110)
[2019-12-02] MEDS: LISINOPRIL 5 MG TABLET PO SCH (20:41)
[2019-12-02] MEDS: SENNA 187 MG TABLET PO SCH (20:46)
[2019-12-02] MEDS: INSULIN GLARGINE,HUM.REC.ANLOG 100 UNITS/ML SQ SCH (21:34)
[2019-12-02 22:30] LABS: GLUCOMETER DEV NAME(LOC) 2WR.1C; GLUCOSE,POINT OF CARE 117 MG/DL (70-110)
[2019-12-02 23:00] VITALS: BP 126/70
[2019-12-03 06:16] LABS: GLUCOMETER DEV NAME(LOC) 2WR.1C; GLUCOSE,POINT OF CARE 140 MG/DL (70-110)
[2019-12-03 07:15] VITALS: BP 129/71
[2019-12-03] MEDS: POTASSIUM CHLORIDE 20 MEQ ER TABLET PO SCH (08:06)
[2019-12-03] MEDS: ZINC SULFATE 220 MG CAPSULE PO SCH (08:06)
[2019-12-03] MEDS: CARVEDILOL 6.25 MG TABLET PO SCH (08:07)
[2019-12-03] MEDS: FUROSEMIDE 20 MG TABLET PO SCH (08:07)
[2019-12-03] MEDS: ASCORBIC ACID 500 MG TABLET PO SCH (08:07)
[2019-12-03] MEDS: PANTOPRAZOLE SODIUM 40 MG DR TABLET PO SCH (08:07)
[2019-12-03] MEDS: LACTOBAC ACID/BULG/BIFID/THERM TABLET PO SCH ×2 (08:07→21:32)
[2019-12-03] MEDS: FAMOTIDINE 20 MG TABLET PO SCH ×2 (08:07→21:32)
[2019-12-03] MEDS: HEPARIN SODIUM,PORCINE 5,000 UNITS/ML VIAL SQ SCH ×2 (08:07→21:33)
[2019-12-03] MEDS: MULTIVITAMINS WITH MINERALS, THERAPEUTIC TABLET PO SCH (08:07)
[2019-12-03] MEDS: LEVOFLOXACIN 250 MG TABLET PO SCH (08:08)
[2019-12-03] MEDS: DOCUSATE SODIUM 100 MG CAPSULE PO SCH ×2 (08:09→21:00)
[2019-12-03] MEDS: ALBUTEROL SULFATE 2.5 MG/0.5 ML NEB SOLUTION NEB SCH ×2 (09:00→21:50)
[2019-12-03] MEDS: IPRATROPIUM BROMIDE 0.5 MG/2.5 ML NEB SOLUTION NEB SCH ×2 (09:00→21:50)
[2019-12-03] MEDS: INSULIN LISPRO 100 UNITS/ML SQ PRN (12:48)
[2019-12-03 16:32] VITALS: BP 95/59
[2019-12-03 18:04] LABS: GLUCOMETER DEV NAME(LOC) 2WR.2; GLUCOSE,POINT OF CARE 97 MG/DL (70-110)
[2019-12-03] MEDS: SENNA 187 MG TABLET PO SCH (21:00)
[2019-12-03] MEDS: INSULIN GLARGINE,HUM.REC.ANLOG 100 UNITS/ML SQ SCH (21:40)
[2019-12-03 22:22] LABS: GLUCOMETER DEV NAME(LOC) 2WR.2; GLUCOSE,POINT OF CARE 114 MG/DL (70-110)
[2019-12-03 22:22] LABS: GLUCOMETER DEV NAME(LOC) 2WR.1C; GLUCOSE,POINT OF CARE 149 MG/DL (70-110)
[2019-12-03 23:29] VITALS: BP 109/52
[2019-12-04 06:32] LABS: GLUCOMETER DEV NAME(LOC) 2WR.2; GLUCOSE,POINT OF CARE 115 MG/DL (70-110)
[2019-12-04 07:40] VITALS: BP 141/65
[2019-12-04] MEDS: HEPARIN SODIUM,PORCINE 5,000 UNITS/ML VIAL SQ SCH ×2 (08:16→21:43)
[2019-12-04] MEDS: LEVOFLOXACIN 250 MG TABLET PO SCH (08:17)
[2019-12-04] MEDS: ASCORBIC ACID 500 MG TABLET PO SCH (08:17)
[2019-12-04] MEDS: FAMOTIDINE 20 MG TABLET PO SCH ×2 (08:17→21:43)
[2019-12-04] MEDS: MULTIVITAMINS WITH MINERALS, THERAPEUTIC TABLET PO SCH (08:17)
[2019-12-04] MEDS: PANTOPRAZOLE SODIUM 40 MG DR TABLET PO SCH ×2 (08:17→08:23)
[2019-12-04] MEDS: ZINC SULFATE 220 MG CAPSULE PO SCH (08:17)
[2019-12-04] MEDS: DOCUSATE SODIUM 100 MG CAPSULE PO SCH ×2 (08:17→21:00)
[2019-12-04] MEDS: LACTOBAC ACID/BULG/BIFID/THERM TABLET PO SCH ×2 (08:17→21:43)
[2019-12-04] MEDS: ALBUTEROL SULFATE 2.5 MG/0.5 ML NEB SOLUTION NEB SCH ×2 (09:18→21:49)
[2019-12-04] MEDS: IPRATROPIUM BROMIDE 0.5 MG/2.5 ML NEB SOLUTION NEB SCH ×2 (09:18→21:49)
[2019-12-04 12:11] LABS: GLUCOMETER DEV NAME(LOC) 2WR.2; GLUCOSE,POINT OF CARE 169 MG/DL (70-110)
[2019-12-04] MEDS: INSULIN LISPRO 100 UNITS/ML SQ PRN (12:46)
[2019-12-04 16:28] VITALS: BP 161/72
[2019-12-04 19:51] LABS: GLUCOMETER DEV NAME(LOC) 2WR.2; GLUCOSE,POINT OF CARE 108 MG/DL (70-110)
[2019-12-04] MEDS: SENNA 187 MG TABLET PO SCH (21:00)
[2019-12-04] MEDS: CARVEDILOL 3.125 MG TABLET PO SCH (21:43)
[2019-12-04] MEDS: INSULIN GLARGINE,HUM.REC.ANLOG 100 UNITS/ML SQ SCH (22:01)
[2019-12-04 22:42] LABS: GLUCOMETER DEV NAME(LOC) 2WR.2; GLUCOSE,POINT OF CARE 133 MG/DL (70-110)
[2019-12-04 23:28] VITALS: BP 125/68
[2019-12-05 06:38] LABS: GLUCOMETER DEV NAME(LOC) 2WR.1C; GLUCOSE,POINT OF CARE 115 MG/DL (70-110)
[2019-12-05 07:45] VITALS: BP 138/80
[2019-12-05] MEDS: CARVEDILOL 3.125 MG TABLET PO SCH ×2 (08:55→21:45)
[2019-12-05] MEDS: LACTOBAC ACID/BULG/BIFID/THERM TABLET PO SCH ×2 (08:55→21:45)
[2019-12-05] MEDS: MULTIVITAMINS WITH MINERALS, THERAPEUTIC TABLET PO SCH (08:55)
[2019-12-05] MEDS: LEVOFLOXACIN 250 MG TABLET PO SCH (08:55)
[2019-12-05] MEDS: FAMOTIDINE 20 MG TABLET PO SCH ×2 (08:55→21:45)
[2019-12-05] MEDS: ASCORBIC ACID 500 MG TABLET PO SCH (08:55)
[2019-12-05] MEDS: ZINC SULFATE 220 MG CAPSULE PO SCH (08:55)
[2019-12-05] MEDS: HEPARIN SODIUM,PORCINE 5,000 UNITS/ML VIAL SQ SCH ×2 (08:56→21:46)
[2019-12-05] MEDS: DOCUSATE SODIUM 100 MG CAPSULE PO SCH ×2 (09:00→21:00)
[2019-12-05] MEDS: IPRATROPIUM BROMIDE 0.5 MG/2.5 ML NEB SOLUTION NEB SCH ×2 (11:31→20:56)
[2019-12-05] MEDS: ALBUTEROL SULFATE 2.5 MG/0.5 ML NEB SOLUTION NEB SCH ×2 (11:31→20:56)
[2019-12-05] MEDS: INSULIN LISPRO 100 UNITS/ML SQ PRN (13:13)
[2019-12-05 14:12] LABS: GLUCOMETER DEV NAME(LOC) 2WR.2; GLUCOSE,POINT OF CARE 143 MG/DL (70-110)
[2019-12-05 18:02] VITALS: BP 104/47
[2019-12-05] MEDS: SENNA 187 MG TABLET PO SCH (21:00)
[2019-12-05] MEDS: INSULIN GLARGINE,HUM.REC.ANLOG 100 UNITS/ML SQ SCH (21:55)
[2019-12-05 22:07] LABS: GLUCOMETER DEV NAME(LOC) 2WR.1C; GLUCOSE,POINT OF CARE 123 MG/DL (70-110)
[2019-12-05 22:07] LABS: GLUCOMETER DEV NAME(LOC) 2WR.1C; GLUCOSE,POINT OF CARE 139 MG/DL (70-110)
[2019-12-06 01:07] VITALS: BP 112/56
[2019-12-06 05:57] LABS: GLUCOMETER DEV NAME(LOC) 2WR.2; GLUCOSE,POINT OF CARE 102 MG/DL (70-110)
[2019-12-06 06:33] LABS: HEMATOCRIT 32.7 % (36-46); HEMOGLOBIN 11.3 g/dL (12.0-16.0); LYMPHOCYTES # (AUTO) 3.4 K/uL (1.0-4.8); LYMPHOCYTES % (AUTO) 40.4 % (22.0-44.0); MEAN CORPUSCULAR HEMOGLOBIN 27.9 pg (26.0-34.0); MEAN CORPUSCULAR HGB CONC 34.4 G/dL (31.0-37.0); MEAN CORPUSCULAR VOLUME 81 fL (80-100); MONOCYTES # (AUTO) 0.7 K/uL (0.1-1.0); NEUTROPHILS # (AUTO) 3.8 K/uL (1.8-7.7); NEUTROPHILS % (AUTO) 45.6 % (40.0-70.0); PLATELET COUNT (AUTO) 513 K/uL (150-450); RED BLOOD CELL COUNT(AUTO) 4.03 MIL/uL (4.00-5.20); RED CELL DISTRIBUTION WIDTH 18.4 % (11.5-14.5)
[2019-12-06 06:47] LABS: ANION GAP 7 mmol/L (8-16); CALCIUM, TOTAL 9.1 mg/dL (8.8-10.5); CARBON DIOXIDE 29 mmol/L (22-29); CHLORIDE 105 mmol/L (98-107); GLOMERULAR FILTR. RATE CALC > 60 mL/min (>60); GLUCOSE,RANDOM 121 mg/dL (70-110); POTASSIUM 3.9 mmol/L (3.5-5.1); SODIUM SERUM 141 mmol/L (136-145); UREA NITROGEN, BLOOD 12 mg/dL (7-18)
[2019-12-06] MEDS: DOCUSATE SODIUM 100 MG CAPSULE PO SCH (09:00)
[2019-12-06] MEDS: IPRATROPIUM BROMIDE 0.5 MG/2.5 ML NEB SOLUTION NEB SCH (09:30)
[2019-12-06] MEDS: ALBUTEROL SULFATE 2.5 MG/0.5 ML NEB SOLUTION NEB SCH (09:30)
[2019-12-06] MEDS: MULTIVITAMINS WITH MINERALS, THERAPEUTIC TABLET PO SCH (09:50)
[2019-12-06] MEDS: ASCORBIC ACID 500 MG TABLET PO SCH (09:51)
[2019-12-06] MEDS: FAMOTIDINE 20 MG TABLET PO SCH ×2 (09:51→22:10)
[2019-12-06] MEDS: CARVEDILOL 3.125 MG TABLET PO SCH ×2 (09:51→22:10)
[2019-12-06] MEDS: HEPARIN SODIUM,PORCINE 5,000 UNITS/ML VIAL SQ SCH ×2 (09:51→22:10)
[2019-12-06] MEDS: LEVOFLOXACIN 250 MG TABLET PO SCH (09:51)
[2019-12-06] MEDS: LACTOBAC ACID/BULG/BIFID/THERM TABLET PO SCH ×2 (09:53→22:10)
[2019-12-06] MEDS: INSULIN LISPRO 100 UNITS/ML SQ PRN ×2 (13:10→22:13)
[2019-12-06 14:02] LABS: GLUCOMETER DEV NAME(LOC) 2WR.2; GLUCOSE,POINT OF CARE 149 MG/DL (70-110)
[2019-12-06 16:00] VITALS: BP 141/76
[2019-12-06 19:23] LABS: GLUCOMETER DEV NAME(LOC) 2WR.2; GLUCOSE,POINT OF CARE 89 MG/DL (70-110)
[2019-12-06] MEDS ORDERED: IPRATROPIUM BROMIDE 0.5 MG/2.5 ML NEB SOLUTION NEB PRN (20:30)
[2019-12-06] MEDS ORDERED: DOCUSATE SODIUM 100 MG CAPSULE PO PRN (20:30)
[2019-12-06] MEDS ORDERED: ALBUTEROL SULFATE 2.5 MG/0.5 ML NEB SOLUTION NEB PRN (20:30)
[2019-12-06] MEDS ORDERED: SENNA 187 MG TABLET PO PRN (20:30)
[2019-12-06 22:07] VITALS: BP 141/68
[2019-12-06] MEDS: INSULIN GLARGINE,HUM.REC.ANLOG 100 UNITS/ML SQ SCH (22:12)
[2019-12-06 22:45] LABS: GLUCOMETER DEV NAME(LOC) 2WR.2; GLUCOSE,POINT OF CARE 145 MG/DL (70-110)
[2019-12-07] VITALS: BP 116/64
[2019-12-07 06:31] LABS: GLUCOMETER DEV NAME(LOC) 2WR.2; GLUCOSE,POINT OF CARE 122 MG/DL (70-110)
[2019-12-07 08:00] VITALS: BP 96/56
[2019-12-07] MEDS: LEVOFLOXACIN 250 MG TABLET PO SCH (08:51)
[2019-12-07] MEDS: FAMOTIDINE 20 MG TABLET PO SCH ×2 (08:52→22:04)
[2019-12-07] MEDS: LACTOBAC ACID/BULG/BIFID/THERM TABLET PO SCH ×2 (08:52→22:04)
[2019-12-07] MEDS: MULTIVITAMINS WITH MINERALS, THERAPEUTIC TABLET PO SCH (08:52)
[2019-12-07] MEDS: HEPARIN SODIUM,PORCINE 5,000 UNITS/ML VIAL SQ SCH ×2 (08:52→22:04)
[2019-12-07] MEDS: ASCORBIC ACID 500 MG TABLET PO SCH (08:52)
[2019-12-07] MEDS: CARVEDILOL 3.125 MG TABLET PO SCH ×3 (08:52→22:04)
[2019-12-07] MEDS ORDERED: SODIUM HYPOCHLORITE 0.25% [HALF STRENGTH] 473 ML SOLUTION TP SCH (09:00)
[2019-12-07] MEDS: SODIUM HYPOCHLORITE 0.25% [HALF STRENGTH] 473 ML SOLUTION TP SCH (09:01)
[2019-12-07 10:20] LABS: BASOPHILS % (AUTO) 1.2 % (0.0-2.0); EOSINOPHILS % (AUTO) 3.9 % (1.0-6.0); HEMATOCRIT 33.9 % (36-46); HEMOGLOBIN 11.4 g/dL (12.0-16.0); LYMPHOCYTES # (AUTO) 2.9 K/uL (1.0-4.8); LYMPHOCYTES % (AUTO) 31.7 % (22.0-44.0); MEAN CORPUSCULAR HEMOGLOBIN 27.8 pg (26.0-34.0); MEAN CORPUSCULAR HGB CONC 33.7 G/dL (31.0-37.0); MEAN CORPUSCULAR VOLUME 83 fL (80-100); MONOCYTES # (AUTO) 0.6 K/uL (0.1-1.0); MONOCYTES % (AUTO) 6.6 % (2.0-9.0); NEUTROPHILS # (AUTO) 5.2 K/uL (1.8-7.7); NEUTROPHILS % (AUTO) 56.6 % (40.0-70.0); PLATELET COUNT (AUTO) 573 K/uL (150-450); RED BLOOD CELL COUNT(AUTO) 4.11 MIL/uL (4.00-5.20); RED CELL DISTRIBUTION WIDTH 18.8 % (11.5-14.5)
[2019-12-07] MEDS: INSULIN LISPRO 100 UNITS/ML SQ PRN (12:43)
[2019-12-07 16:30] VITALS: BP 130/59
[2019-12-07 20:12] LABS: GLUCOMETER DEV NAME(LOC) 2WR.2; GLUCOSE,POINT OF CARE 133 MG/DL (70-110)
[2019-12-07 20:39] LABS: GLUCOMETER DEV NAME(LOC) 2WR.1C; GLUCOSE,POINT OF CARE 147 MG/DL (70-110)
[2019-12-07 21:05] VITALS: BP 152/77
[2019-12-07] MEDS: INSULIN GLARGINE,HUM.REC.ANLOG 100 UNITS/ML SQ SCH (22:06)
[2019-12-08 01:00] VITALS: BP 141/80
[2019-12-08 04:03] LABS: GLUCOMETER DEV NAME(LOC) 2WR.2; GLUCOSE,POINT OF CARE 133 MG/DL (70-110)
[2019-12-08 08:09] LABS: BASOPHILS % (AUTO) 1.3 % (0.0-2.0); EOSINOPHILS % (AUTO) 5.2 % (1.0-6.0); HEMATOCRIT 30.8 % (36-46); HEMOGLOBIN 10.7 g/dL (12.0-16.0); LYMPHOCYTES # (AUTO) 3.6 K/uL (1.0-4.8); MEAN CORPUSCULAR HEMOGLOBIN 28.4 pg (26.0-34.0); MEAN CORPUSCULAR HGB CONC 34.8 G/dL (31.0-37.0); MEAN CORPUSCULAR VOLUME 82 fL (80-100); MONOCYTES # (AUTO) 0.7 K/uL (0.1-1.0); MONOCYTES % (AUTO) 8.6 % (2.0-9.0); NEUTROPHILS # (AUTO) 3.1 K/uL (1.8-7.7); NEUTROPHILS % (AUTO) 39.9 % (40.0-70.0); PLATELET COUNT (AUTO) 561 K/uL (150-450); RED BLOOD CELL COUNT(AUTO) 3.77 MIL/uL (4.00-5.20); RED CELL DISTRIBUTION WIDTH 18.9 % (11.5-14.5)
[2019-12-08 08:10] VITALS: BP 131/72
[2019-12-08] MEDS: FAMOTIDINE 20 MG TABLET PO SCH ×2 (08:20→20:46)
[2019-12-08] MEDS: MULTIVITAMINS WITH MINERALS, THERAPEUTIC TABLET PO SCH (08:20)
[2019-12-08] MEDS: HEPARIN SODIUM,PORCINE 5,000 UNITS/ML VIAL SQ SCH ×2 (08:21→20:47)
[2019-12-08] MEDS: LACTOBAC ACID/BULG/BIFID/THERM TABLET PO SCH ×2 (08:21→20:46)
[2019-12-08] MEDS: ASCORBIC ACID 500 MG TABLET PO SCH (08:21)
[2019-12-08] MEDS: LEVOFLOXACIN 250 MG TABLET PO SCH (08:21)
[2019-12-08] MEDS: CARVEDILOL 3.125 MG TABLET PO SCH ×2 (09:00→20:47)
[2019-12-08] MEDS: SODIUM HYPOCHLORITE 0.25% [HALF STRENGTH] 473 ML SOLUTION TP SCH (09:44)
[2019-12-08 12:40] LABS: GLUCOMETER DEV NAME(LOC) 2WR.1C; GLUCOSE,POINT OF CARE 129 MG/DL (70-110)
[2019-12-08 13:00] LABS: GLUCOMETER DEV NAME(LOC) 2WR.2; GLUCOSE,POINT OF CARE 112 MG/DL (70-110)
[2019-12-08 16:56] VITALS: BP 154/68
[2019-12-08 20:45] VITALS: BP 181/93
[2019-12-08] MEDS: INSULIN GLARGINE,HUM.REC.ANLOG 100 UNITS/ML SQ SCH (20:49)
[2019-12-08 22:22] VITALS: BP 164/83
[2019-12-08 23:05] LABS: GLUCOMETER DEV NAME(LOC) 2WR.2; GLUCOSE,POINT OF CARE 133 MG/DL (70-110)
[2019-12-08 23:06] LABS: GLUCOMETER DEV NAME(LOC) 2WR.1C; GLUCOSE,POINT OF CARE 138 MG/DL (70-110)
[2019-12-08 23:32] VITALS: BP 142/88
[2019-12-09 05:58] LABS: GLUCOMETER DEV NAME(LOC) 2WR.2; GLUCOSE,POINT OF CARE 118 MG/DL (70-110)
[2019-12-09 07:31] VITALS: BP 158/84
[2019-12-09] MEDS: LACTOBAC ACID/BULG/BIFID/THERM TABLET PO SCH ×2 (08:19→21:42)
[2019-12-09] MEDS: FAMOTIDINE 20 MG TABLET PO SCH ×2 (08:20→21:41)
[2019-12-09] MEDS: MULTIVITAMINS WITH MINERALS, THERAPEUTIC TABLET PO SCH (08:20)
[2019-12-09] MEDS: ASCORBIC ACID 500 MG TABLET PO SCH (08:20)
[2019-12-09] MEDS: HEPARIN SODIUM,PORCINE 5,000 UNITS/ML VIAL SQ SCH ×2 (08:20→21:42)
[2019-12-09] MEDS: CARVEDILOL 3.125 MG TABLET PO SCH ×2 (08:20→21:41)
[2019-12-09] MEDS: MIDODRINE HCL 5 MG TABLET PO SCH (08:21)
[2019-12-09] MEDS: SODIUM HYPOCHLORITE 0.25% [HALF STRENGTH] 473 ML SOLUTION TP SCH (08:27)
[2019-12-09] MEDS ORDERED: LEVOFLOXACIN 250 MG TABLET PO SCH (09:00)
[2019-12-09 12:30] LABS: GLUCOMETER DEV NAME(LOC) 2WR.1C; GLUCOSE,POINT OF CARE 131 MG/DL (70-110)
[2019-12-09] MEDS ORDERED: SODIUM CL IRRIG SOLN BOTTLE 250 ML IRRIG ONE (16:09)
[2019-12-09 16:59] VITALS: BP 148/68
[2019-12-09 20:03] LABS: GLUCOMETER DEV NAME(LOC) 2WR.1C; GLUCOSE,POINT OF CARE 129 MG/DL (70-110)
[2019-12-09] MEDS: INSULIN GLARGINE,HUM.REC.ANLOG 100 UNITS/ML SQ SCH (21:48)
[2019-12-09 22:42] LABS: GLUCOMETER DEV NAME(LOC) 2WR.2; GLUCOSE,POINT OF CARE 138 MG/DL (70-110)
[2019-12-09 23:34] VITALS: BP 146/60
[2019-12-10] VITALS (7 sets, daily range): BP systolic 76–154; BP diastolic 46–85
[2019-12-10 06:24] LABS: GLUCOMETER DEV NAME(LOC) 2WR.2; GLUCOSE,POINT OF CARE 104 MG/DL (70-110)
[2019-12-10] MEDS: LACTOBAC ACID/BULG/BIFID/THERM TABLET PO SCH ×2 (09:32→21:39)
[2019-12-10] MEDS: ASCORBIC ACID 500 MG TABLET PO SCH (09:32)
[2019-12-10] MEDS: FAMOTIDINE 20 MG TABLET PO SCH ×2 (09:32→21:38)
[2019-12-10] MEDS: MULTIVITAMINS WITH MINERALS, THERAPEUTIC TABLET PO SCH (09:32)
[2019-12-10] MEDS: HEPARIN SODIUM,PORCINE 5,000 UNITS/ML VIAL SQ SCH ×2 (09:33→21:39)
[2019-12-10] MEDS: MIDODRINE HCL 5 MG TABLET PO SCH (09:34)
[2019-12-10] MEDS: CARVEDILOL 3.125 MG TABLET PO SCH ×2 (09:34→21:39)
[2019-12-10] MEDS: SODIUM HYPOCHLORITE 0.25% [HALF STRENGTH] 473 ML SOLUTION TP SCH (13:43)
[2019-12-10 18:25] LABS: GLUCOMETER DEV NAME(LOC) 2WR.1C; GLUCOSE,POINT OF CARE 113 MG/DL (70-110)
[2019-12-10 18:25] LABS: GLUCOMETER DEV NAME(LOC) 2WR.2; GLUCOSE,POINT OF CARE 112 MG/DL (70-110)
[2019-12-10] MEDS: INSULIN GLARGINE,HUM.REC.ANLOG 100 UNITS/ML SQ SCH (21:41)
[2019-12-10 23:05] LABS: GLUCOMETER DEV NAME(LOC) 2WR.2; GLUCOSE,POINT OF CARE 129 MG/DL (70-110)
[2019-12-11 06:07] LABS: GLUCOMETER DEV NAME(LOC) 2WR.1C; GLUCOSE,POINT OF CARE 138 MG/DL (70-110)
[2019-12-11 07:51] VITALS: BP 146/51
[2019-12-11] MEDS: HEPARIN SODIUM,PORCINE 5,000 UNITS/ML VIAL SQ SCH ×2 (08:04→21:18)
[2019-12-11] MEDS: MULTIVITAMINS WITH MINERALS, THERAPEUTIC TABLET PO SCH (08:04)
[2019-12-11] MEDS: CARVEDILOL 3.125 MG TABLET PO SCH ×2 (08:04→21:18)
[2019-12-11] MEDS: ASCORBIC ACID 500 MG TABLET PO SCH (08:04)
[2019-12-11] MEDS: LACTOBAC ACID/BULG/BIFID/THERM TABLET PO SCH ×2 (08:05→21:18)
[2019-12-11] MEDS: FAMOTIDINE 20 MG TABLET PO SCH ×2 (08:05→21:18)
[2019-12-11] MEDS: SODIUM HYPOCHLORITE 0.25% [HALF STRENGTH] 473 ML SOLUTION TP SCH (08:12)
[2019-12-11] MEDS: MIDODRINE HCL 5 MG TABLET PO SCH (09:00)
[2019-12-11 09:58] VITALS: BP 136/71
[2019-12-11] MEDS ORDERED: HydrALAZINE HCL 10 MG TABLET PO PRN (16:00)
[2019-12-11 16:42] VITALS: BP 124/67
[2019-12-11 18:05] LABS: GLUCOMETER DEV NAME(LOC) 2WR.2; GLUCOSE,POINT OF CARE 126 MG/DL (70-110)
[2019-12-11] MEDS: INSULIN GLARGINE,HUM.REC.ANLOG 100 UNITS/ML SQ SCH (21:19)
[2019-12-11] MEDS: INSULIN LISPRO 100 UNITS/ML SQ PRN (21:20)
[2019-12-11 22:37] LABS: GLUCOMETER DEV NAME(LOC) 2WR.2; GLUCOSE,POINT OF CARE 172 MG/DL (70-110)
[2019-12-11 23:41] VITALS: BP 147/68
[2019-12-12 05:23] LABS: GLUCOMETER DEV NAME(LOC) 2WR.1C; GLUCOSE,POINT OF CARE 116 MG/DL (70-110)
[2019-12-12 05:39] LABS: GLUCOMETER DEV NAME(LOC) 2WR.2; GLUCOSE,POINT OF CARE 110 MG/DL (70-110)
[2019-12-12 07:15] VITALS: BP 104/36
[2019-12-12] MEDS: LACTOBAC ACID/BULG/BIFID/THERM TABLET PO SCH ×2 (08:42→21:17)
[2019-12-12] MEDS: FAMOTIDINE 20 MG TABLET PO SCH ×2 (08:42→21:17)
[2019-12-12] MEDS: ASCORBIC ACID 500 MG TABLET PO SCH (08:43)
[2019-12-12] MEDS: CARVEDILOL 3.125 MG TABLET PO SCH ×2 (08:43→21:18)
[2019-12-12] MEDS: HEPARIN SODIUM,PORCINE 5,000 UNITS/ML VIAL SQ SCH ×2 (08:43→21:18)
[2019-12-12] MEDS: MULTIVITAMINS WITH MINERALS, THERAPEUTIC TABLET PO SCH (08:43)
[2019-12-12] MEDS: SODIUM HYPOCHLORITE 0.25% [HALF STRENGTH] 473 ML SOLUTION TP SCH (08:43)
[2019-12-12] MEDS: MIDODRINE HCL 5 MG TABLET PO SCH (09:00)
[2019-12-12 13:43] LABS: GLUCOMETER DEV NAME(LOC) 2WR.2; GLUCOSE,POINT OF CARE 105 MG/DL (70-110)
[2019-12-12 15:50] VITALS: BP 116/59
[2019-12-12 17:44] LABS: GLUCOMETER DEV NAME(LOC) 2WR.2; GLUCOSE,POINT OF CARE 128 MG/DL (70-110)
[2019-12-12 20:35] VITALS: BP 127/92
[2019-12-12] MEDS: INSULIN GLARGINE,HUM.REC.ANLOG 100 UNITS/ML SQ SCH (21:25)
[2019-12-12 21:55] LABS: GLUCOMETER DEV NAME(LOC) 2WR.2; GLUCOSE,POINT OF CARE 163 MG/DL (70-110)
[2019-12-12 23:57] VITALS: BP 129/79
[2019-12-13 06:35] LABS: GLUCOMETER DEV NAME(LOC) 2WR.2; GLUCOSE,POINT OF CARE 128 MG/DL (70-110)
[2019-12-13 07:40] VITALS: BP 118/62
[2019-12-13] MEDS: MULTIVITAMINS WITH MINERALS, THERAPEUTIC TABLET PO SCH (08:03)
[2019-12-13] MEDS: LACTOBAC ACID/BULG/BIFID/THERM TABLET PO SCH ×2 (08:03→21:12)
[2019-12-13] MEDS: CARVEDILOL 3.125 MG TABLET PO SCH ×2 (08:03→21:12)
[2019-12-13] MEDS: FAMOTIDINE 20 MG TABLET PO SCH ×2 (08:03→21:12)
[2019-12-13] MEDS: ASCORBIC ACID 500 MG TABLET PO SCH (08:03)
[2019-12-13] MEDS: MIDODRINE HCL 5 MG TABLET PO SCH ×2 (08:04→08:05)
[2019-12-13] MEDS: HEPARIN SODIUM,PORCINE 5,000 UNITS/ML VIAL SQ SCH ×2 (08:04→21:12)
[2019-12-13] MEDS: SODIUM HYPOCHLORITE 0.25% [HALF STRENGTH] 473 ML SOLUTION TP SCH (12:55)
[2019-12-13 13:00] LABS: GLUCOMETER DEV NAME(LOC) 2WR.2; GLUCOSE,POINT OF CARE 129 MG/DL (70-110)
[2019-12-13 15:00] VITALS: BP 124/72
[2019-12-13] MEDS: INSULIN GLARGINE,HUM.REC.ANLOG 100 UNITS/ML SQ SCH (21:19)
[2019-12-13] MEDS: INSULIN LISPRO 100 UNITS/ML SQ PRN (21:19)
[2019-12-13] MEDS ORDERED: INSU100V SQ (21:36)
[2019-12-13] MEDS ORDERED: INSLAN SQ (21:36)
[2019-12-13] MEDS ORDERED: FAMO20 PO (21:36)
[2019-12-13] MEDS ORDERED: ASCO500 PO (21:36)
[2019-12-13] MEDS ORDERED: ACID1TAB13 PO (21:36)
[2019-12-13] MEDS ORDERED: CARV3 PO (21:36)
[2019-12-13] MEDS ORDERED: MULT-1239 PO (21:36)
[2019-12-13 21:45] LABS: GLUCOMETER DEV NAME(LOC) 2WR.1C; GLUCOSE,POINT OF CARE 190 MG/DL (70-110)
[2019-12-13 21:45] LABS: GLUCOMETER DEV NAME(LOC) 2WR.1C; GLUCOSE,POINT OF CARE 129 MG/DL (70-110)
[2019-12-14] VITALS: BP 139/75
[2019-12-14 07:15] VITALS: BP 121/61
[2019-12-14 07:24] LABS: GLUCOMETER DEV NAME(LOC) 2WR.2; GLUCOSE,POINT OF CARE 150 MG/DL (70-110)
[2019-12-14] MEDS: MULTIVITAMINS WITH MINERALS, THERAPEUTIC TABLET PO SCH (07:36)
[2019-12-14] MEDS: LACTOBAC ACID/BULG/BIFID/THERM TABLET PO SCH (07:36)
[2019-12-14] MEDS: CARVEDILOL 3.125 MG TABLET PO SCH (07:36)
[2019-12-14] MEDS: ASCORBIC ACID 500 MG TABLET PO SCH (07:36)
[2019-12-14] MEDS: FAMOTIDINE 20 MG TABLET PO SCH (07:36)
[2019-12-14] MEDS: HEPARIN SODIUM,PORCINE 5,000 UNITS/ML VIAL SQ SCH (07:36)
[2019-12-14] MEDS: MIDODRINE HCL 5 MG TABLET PO SCH (07:37)
[2019-12-14] MEDS: INSULIN LISPRO 100 UNITS/ML SQ PRN (07:44)
[2019-12-14] MEDS: SODIUM HYPOCHLORITE 0.25% [HALF STRENGTH] 473 ML SOLUTION TP SCH (07:46)
[2019-12-14 12:55] LABS: GLUCOMETER DEV NAME(LOC) 2WR.2; GLUCOSE,POINT OF CARE 112 MG/DL (70-110)
== END 2019-12-14 13:00 | disposition home or self-care (01) | DRG 948 ==
LOC: 2WR 16:45
PROVIDERS: ADMIT Physical Medicine & Rehabilitation; ATTEND Physical Medicine & Rehabilitation
DX: R53.81 Other malaise (principal); D64.9 Anemia, unspecified; E11.9 Type 2 diabetes mellitus without complications; E87.6 Hypokalemia; G89.29 Other chronic pain; I11.0 Hypertensive heart disease with heart failure; I50.9 Heart failure, unspecified; I95.1 Orthostatic hypotension; K59.00 Constipation, unspecified; Z79.899 Other long term (current) drug therapy; Z83.3 Family history of diabetes mellitus
CPT/HCPCS: 83735; 87081; 94640; 97110; 97116; 97150; 97163; 97530; 97535; 99366; J1644; J1815

== ENCOUNTER → 2019-12-20 | Outpatient (CLI) | payer MEDICARE, BC ==
[~2019-12-20] MED LIST: ACID1TAB13 PO; ASCO500 PO; CARV3 PO; FAMO20 PO; INSLAN SQ; INSU100V SQ; LIDOCAINE 2% 5 ML JELLY TP ONE; MULT-1239 PO
== END | disposition home or self-care (01) ==
LOC: HBOWC 08:31
PROVIDERS: ATTEND Surgery Plastic and Reconstructive Surgery
DX: T81.89XA Other complications of procedures, not elsewhere classified, initial encounter (principal); S71.102A Unspecified open wound, left thigh, initial encounter; I11.0 Hypertensive heart disease with heart failure; I50.32 Chronic diastolic (congestive) heart failure; F32.9 Major depressive disorder, single episode, unspecified; E11.42 Type 2 diabetes mellitus with diabetic polyneuropathy; G89.29 Other chronic pain; D63.8 Anemia in other chronic diseases classified elsewhere; Z79.899 Other long term (current) drug therapy; Z87.891 Personal history of nicotine dependence; Z79.4 Long term (current) use of insulin; Y83.8 Other surgical procedures as the cause of abnormal reaction of the patient, or of later complication, without mention of misadventure at the time of the procedure; Y92.89 Other specified places as the place of occurrence of the external cause; X58.XXXA Exposure to other specified factors, initial encounter; Y93.89 Activity, other specified; Y99.8 Other external cause status; Z89.519 Acquired absence of unspecified leg below knee
CPT/HCPCS: 11043

== ENCOUNTER → 2019-12-27 | Outpatient (CLI) | payer MEDICARE, BC ==
[~2019-12-27] MED LIST changes: -LIDOCAINE 2% 5 ML JELLY TP ONE
== END | disposition home or self-care (01) ==
LOC: HBOWC 09:42
PROVIDERS: ATTEND Surgery Plastic and Reconstructive Surgery
DX: T81.89XD Other complications of procedures, not elsewhere classified, subsequent encounter (principal); S71.102D Unspecified open wound, left thigh, subsequent encounter; E11.42 Type 2 diabetes mellitus with diabetic polyneuropathy; I11.0 Hypertensive heart disease with heart failure; I50.32 Chronic diastolic (congestive) heart failure; F32.9 Major depressive disorder, single episode, unspecified; G89.29 Other chronic pain; D63.8 Anemia in other chronic diseases classified elsewhere; Z79.899 Other long term (current) drug therapy; Z87.891 Personal history of nicotine dependence; Z79.4 Long term (current) use of insulin; Z89.519 Acquired absence of unspecified leg below knee; Y83.8 Other surgical procedures as the cause of abnormal reaction of the patient, or of later complication, without mention of misadventure at the time of the procedure
CPT/HCPCS: 11043

== ENCOUNTER → 2020-01-03 | Outpatient (CLI) | payer MEDICARE, BC | END | disposition home or self-care (01) | LOC: HBOWC 08:10 | PROVIDERS: ATTEND Surgery Plastic and Reconstructive Surgery | DX: T81.89XD Other complications of procedures, not elsewhere classified, subsequent encounter (principal); S71.102D Unspecified open wound, left thigh, subsequent encounter; E11.42 Type 2 diabetes mellitus with diabetic polyneuropathy; I11.0 Hypertensive heart disease with heart failure; I50.32 Chronic diastolic (congestive) heart failure; F32.9 Major depressive disorder, single episode, unspecified; G89.29 Other chronic pain; D63.8 Anemia in other chronic diseases classified elsewhere; Z79.899 Other long term (current) drug therapy; Z87.891 Personal history of nicotine dependence; Z79.4 Long term (current) use of insulin; Z89.519 Acquired absence of unspecified leg below knee; Y83.8 Other surgical procedures as the cause of abnormal reaction of the patient, or of later complication, without mention of misadventure at the time of the procedure | CPT/HCPCS: 11043 ==

== ENCOUNTER → 2020-01-10 | Outpatient (CLI) | payer MEDICARE, BC | END | disposition home or self-care (01) | LOC: HBOWC 08:29 | PROVIDERS: ATTEND Surgery Plastic and Reconstructive Surgery | DX: T81.89XD Other complications of procedures, not elsewhere classified, subsequent encounter (principal); S71.102D Unspecified open wound, left thigh, subsequent encounter; I11.0 Hypertensive heart disease with heart failure; I50.32 Chronic diastolic (congestive) heart failure; F32.9 Major depressive disorder, single episode, unspecified; E11.42 Type 2 diabetes mellitus with diabetic polyneuropathy; G89.29 Other chronic pain; D63.8 Anemia in other chronic diseases classified elsewhere; Z79.899 Other long term (current) drug therapy; Z87.891 Personal history of nicotine dependence; Z79.4 Long term (current) use of insulin; Z89.519 Acquired absence of unspecified leg below knee; Y83.8 Other surgical procedures as the cause of abnormal reaction of the patient, or of later complication, without mention of misadventure at the time of the procedure; X58.XXXD Exposure to other specified factors, subsequent encounter ==

== ENCOUNTER → 2020-01-24 | Outpatient (CLI) | payer MEDICARE, BC | END | disposition home or self-care (01) | LOC: HBOWC 09:07 | PROVIDERS: ATTEND Surgery Plastic and Reconstructive Surgery | DX: T81.89XD Other complications of procedures, not elsewhere classified, subsequent encounter (principal); S71.102D Unspecified open wound, left thigh, subsequent encounter; I11.0 Hypertensive heart disease with heart failure; I50.32 Chronic diastolic (congestive) heart failure; F32.9 Major depressive disorder, single episode, unspecified; E11.42 Type 2 diabetes mellitus with diabetic polyneuropathy; G89.29 Other chronic pain; D63.8 Anemia in other chronic diseases classified elsewhere; Z79.899 Other long term (current) drug therapy; Z87.891 Personal history of nicotine dependence; Z79.4 Long term (current) use of insulin; Z89.519 Acquired absence of unspecified leg below knee; Y83.8 Other surgical procedures as the cause of abnormal reaction of the patient, or of later complication, without mention of misadventure at the time of the procedure; X58.XXXD Exposure to other specified factors, subsequent encounter ==